=== PATIENT | female | born 1985 | race African-American/Black ===

== ENCOUNTER 2021-04-20 21:30 | Emergency (ER) | payer OTHER ==
[2021-04-20 21:45] VITALS: BP 108/73; PULSE 83; TEMP 98.3; BMI 26.3
[2021-04-20 22:32] LABS: BASO % 0.6 % (0-2.0); EOS % 0.8 % (0-4.5); HEMATOCRIT 37.2 % (32.4-45.2); HEMOGLOBIN 12.3 GM/dL (10.7-15.3); LYMPH % 26.7 % (8-40); MCH 26.8 pg (25.7-33.7); MCHC 33.1 g/dl (32.0-36.0); MEAN CELL VOLUME 81.1 fl (80-96); MEAN PLT VOLUME 8.1 fl (7.5-11.1); MONO % 5.4 % (3.8-10.2); NEUT % 66.5 % (42.8-82.8); PLATELET COUNT 236 10^3/uL (134-434); RBC 4.59 M/mm3 (3.60-5.2); RDW 13.2 % (11.6-15.6); WHITE BLOOD COUNT 8.2 K/mm3 (4.0-10.0)
[2021-04-20 22:56] LABS: BLOOD UREA NITROGEN 8.8 mg/dL (7-18); CALCIUM 8.8 mg/dL (8.5-10.1)
[2021-04-20 22:57] LABS: ALBUMIN 3.7 g/dl (3.4-5.0)
[2021-04-20 23:00] LABS: CREATININE 0.7 mg/dL (0.55-1.3)
[2021-04-20 23:01] LABS: BILIRUBIN,TOTAL 0.6 mg/dL (0.2-1); TOT PROT 7.5 g/dl (6.4-8.2)
[2021-04-20 23:24] LABS: PH,URINE 5.5 (5.0-8.0); URINE APPEARANCE Clear; URINE BILIRUBIN Negative (NEGATIVE); URINE COLOR Yellow; URINE GLUCOSE (UA) Negative (NEGATIVE); URINE KETONE Negative (NEGATIVE); URINE LEUK ESTERASE 1+ (NEGATIVE); URINE NITRITE Negative (NEGATIVE); URINE PROTEIN Negative (NEGATIVE); URINE UROBILINOGEN 0.2 mg/dL (0.2-1.0)
[2021-04-21 00:08] LABS: EPI CELLS 58.8 /uL (0-25.1); HYALINE CASTS 1.77 /uL (0-3.1); URINE BACTERIA 727.8 /uL (0-1359); URINE RBC 48.5 /uL (0-23.9); URINE WBC 63.7 /uL (0-25.8)
== END 2021-04-21 00:35 | disposition home or self-care (01) ==
LOC: JER 21:30
DX: O26.851 Spotting complicating pregnancy, first trimester (principal); Z3A.01 Less than 8 weeks gestation of pregnancy
CPT/HCPCS: 36415; 76801-TC; 80053; 81003; 84702; 85025; 86850; 86900; 86901; 87086; 99284-25